=== PATIENT | female | born 1970 | race Caucasian/White ===

== ENCOUNTER → 2020-09-08 | Day surgery (SDC) | payer OTHER ==
[~2020-09-08] MED LIST: IMITREX50 MG PO; INDERAL20 MG PO; VENTOLIN HFA IN18 GM INH; WELLBUTRIN XL150 MG PO
[2020-09-08 10:09] LABS: HCG (URINE) SCREEN NEGATIVE (NEGATIVE)
== END | disposition home or self-care (01) ==
LOC: FAS 09:48
PROVIDERS: Student in an Organized Health Care Education/Training Program
DX: Z12.11 Encounter for screening for malignant neoplasm of colon (principal); D12.8 Benign neoplasm of rectum; E05.00 Thyrotoxicosis with diffuse goiter without thyrotoxic crisis or storm; J45.909 Unspecified asthma, uncomplicated; G43.109 Migraine with aura, not intractable, without status migrainosus; F41.8 Other specified anxiety disorders; E78.5 Hyperlipidemia, unspecified; Z87.891 Personal history of nicotine dependence; Z79.899 Other long term (current) drug therapy
CPT/HCPCS: 84703; J2704; J7120